=== PATIENT | male | born 1950 | race Caucasian/White ===

== ENCOUNTER 2020-05-06 08:18 | Emergency (ER) | payer BC, OTHER ==
[~2020-05-06] VITALS: Ht 172.7 cm; Wt 72.6 kg
[2020-05-06] MEDS ORDERED: HYDROCODONE/APAP 5-325MG TABLET PO ONE (08:45)
[2020-05-06] MEDS ORDERED: HYDROCODONE/APAP 5-325MG TABLET ONE (08:53)
--- NOTE | 2020-05-06 10:40 | NUR ---
PT WAS EVALUATED BY DR DE LA TORRE. PT REFUSED FURTHER TREATMENT AND DECIDED TO GO AMA. DR DE LA TORRE EXPLAINED ALL RISKS OF [facility] AMA TO THE PT. PT VERBALISED FULL UNDERSTANDING OF ER MD INSTRUCTIONS AND EXPLANATIONS. PT SIGNED AMA FORM AND LEFT HOSPITAL WITH HIS BY HER CAR. AGIT WAS STABLE. NO S/S OF DISTRESS AT THE TIME OF DISCHARGE.
[2020-05-06 10:51] VITALS: BP 121/69
== END 2020-05-06 10:52 | disposition left against medical advice (07) ==
LOC: ER 08:18
DX: S39.012A Strain of muscle, fascia and tendon of lower back, initial encounter (principal); S76.012A Strain of muscle, fascia and tendon of left hip, initial encounter; V23.4XXA Motorcycle driver injured in collision with car, pick-up truck or van in traffic accident, initial encounter; Y92.410 Unspecified street and highway as the place of occurrence of the external cause; M51.36 Other intervertebral disc degeneration, lumbar region; M48.061 Spinal stenosis, lumbar region without neurogenic claudication; R42 Dizziness and giddiness; I95.9 Hypotension, unspecified; M51.26 Other intervertebral disc displacement, lumbar region; I45.10 Unspecified right bundle-branch block; E78.5 Hyperlipidemia, unspecified; N40.0 Benign prostatic hyperplasia without lower urinary tract symptoms
CPT/HCPCS: 71045; 72131; 72192; 93005; A4663